=== PATIENT | female | born 1955 | race African-American/Black ===

== ENCOUNTER → 2024-12-10 | Outpatient (REF) | payer MEDICARE ==
[~2024-12-10] MED LIST: ALBUTEROL0.63 MG/3 NEB; ALTOPREV40 MG PO; ASPIRIN81 MG PO; CYCLOBENZAPRINE10 MG PO; LIPITOR20 MG PO; MELOXICAM15 MG PO; METFORMIN HCL500 MG PO; METOPROLOL TART50 MG PO
== END ==
LOC: RAD 09:01
PROVIDERS: ATTEND Nurse Practitioner Family
DX: M79.602 Pain in left arm (principal); M79.89 Other specified soft tissue disorders
CPT/HCPCS: 93971

== ENCOUNTER → 2025-02-01 | Outpatient (REF) | payer MEDICARE | LOC: DX 08:38 | PROVIDERS: ATTEND Internal Medicine | DX: M85.88 Other specified disorders of bone density and structure, other site (principal) | CPT/HCPCS: 77080 ==